=== PATIENT | male | born 2000 | race Two or more races ===

== ENCOUNTER 2022-12-21 06:00 | Day surgery (SDC) | payer OTHER ==
[~2022-12-21] VITALS: Ht 170.2 cm; Wt 68.0 kg
== END 2022-12-21 14:35 | disposition home or self-care (01) ==
LOC: CIR.AMB 06:00
PROVIDERS: ATTEND Orthopaedic Surgery
DX: S42.031A Displaced fracture of lateral end of right clavicle, initial encounter for closed fracture (principal); E11.9 Type 2 diabetes mellitus without complications; Z76.89 Persons encountering health services in other specified circumstances; I10 Essential (primary) hypertension; Z20.822 Contact with and (suspected) exposure to COVID-19

== ENCOUNTER 2022-12-23 11:00 | Outpatient (CLI) | payer OTHER | END 2022-12-23 13:57 | disposition home or self-care (01) | LOC: LAB 11:00 | PROVIDERS: ATTEND Orthopaedic Surgery | DX: E55.9 Vitamin D deficiency, unspecified (principal); M85.9 Disorder of bone density and structure, unspecified; E56.1 Deficiency of vitamin K ==